=== PATIENT | female | born 1970 | race Caucasian/White ===

== ENCOUNTER → 2024-12-18 11:04 | Outpatient (RCR) | payer OTHER, SELFPAY | END | disposition home or self-care (01) | LOC: HO.PTCHIC 06-04 07:37 | PROVIDERS: PCP Physician Assistant; Visit Provider Orthopaedic Surgery | DX: Z47.89 Encounter for other orthopedic aftercare (principal); Z98.890 Other specified postprocedural states | CPT/HCPCS: 97110; 97140; 97162 ==

== ENCOUNTER 2025-03-12 14:00 | Outpatient (RCR) | payer OTHER, SELFPAY | END 2025-04-10 14:26 | disposition home or self-care (01) | LOC: HO.PTCHIC 14:00 | PROVIDERS: PCP Physician Assistant; Visit Provider Physician Assistant | DX: M25.551 Pain in right hip (principal); G89.29 Other chronic pain | CPT/HCPCS: 97110; 97112; 97140; 97161 ==